=== PATIENT | male | born 1965 | race African-American/Black ===

== ENCOUNTER 2017-12-25 00:06 | Emergency (ER) | payer SELFPAY ==
[2017-12-25] MEDS ORDERED: Pantoprazole 40 MG VIAL ONE (00:51)
[2017-12-25 01:14] LABS: #Basophils 0.1 thou/uL (0.0-0.2); #Eosinphils 0.3 thou/uL (0.0-0.7); #Lymphocytes 2.1 thou/uL (1.20-3.40); #Monocytes 0.6 thou/uL (0.11-0.59); #Neutrophils 3.5 thou/uL (1.40-6.50); %Eosinophils 3.9 % (0.0-10.0); %Lymphocytes 32.5 % (21.0-51.0); %Monocytes 8.8 % (0.0-10.0); %Neutrophils 53.8 % (42.0-75.0); Hemoglobin 17.1 g/dL (14.0-18.0); Mean Corpuscular HGB CONC 33.5 g/dL (32.0-36.0); Mean Corpuscular Hemoglobin 27.5 pg (27.0-31.0); Mean Platelet Volume 7.9 fL (7.4-10.4); Platelet Count 229 thou/uL (130-400); RBC Distribution Width 13.2 % (11.5-14.5); Red Blood Cell (RBC) Count 6.24 mill/uL (4.70-6.10); White Blood Cell (WBC) Count 6.5 thou/uL (4.8-10.8)
[2017-12-25 01:33] LABS: Bilirubin Negative (Negative); Blood, Urine Negative (Negative); Clarity CLEAR (Clear); Glucose, Urine (Dipstick) Negative (Negative); Leukocyte Negative (Negative); Nitrite Negative (Negative); Protein, Urine (Dipstick) Negative (Neg-Trace); Specific Gravity, Urine 1.018 (1.002-1.036); Urobilinogen 0.2 mg/dL (0.2-1.0)
[2017-12-25 01:34] LABS: ALT (SGPT) 21 U/L (8-55); AST (SGOT) 20 U/L (5-34); Albumin 4.2 g/dL (3.5-5.0); Alkaline Phosphatase 65 U/L (40-150); Anion Gap 12 mmol/L (10-20); BUN (Urea Nitrogen) 26 mg/dL (8.4-25.7); Bilirubin, Total 0.4 mg/dL (0.2-1.2); CK (CPK) 544 U/L (30-200); Calc. Creatinine Clearance 0 mL/min (70-130); Calcium 9.6 mg/dL (7.8-10.44); Carbon Dioxide 26 mmol/L (22-29); Chloride 104 mmol/L (98-107); Estimated GFR-MDRD 64; Globulin 3.1 g/dL (2.4-3.5); Glucose 136 mg/dL (70-105); Lipase 39 U/L (8-78); Potassium 3.4 mmol/L (3.5-5.1); Protein, Total 7.3 g/dL (6.0-8.3); Sodium 139 mmol/L (136-145)
[2017-12-25 01:37] LABS: CKMB 3.4 ng/mL (0-6.6); Troponin I Less than 0.010 ng/mL (< 0.028)
--- NOTE | 2017-12-25 07:53 | CT ---
PRELIMINARY REPORT/[facility]/EMERGENCY AFTER HOURS PROCEDURE: EXAM: CT Abdomen and Pelvis With Intravenous Contrast CLINICAL HISTORY: 52 years old, male; Pain; Abdominal pain; Localized; Right lower quadrant (rlq); Patient HX: 52 yo m presents to ed with abdominal pain. Pt woke up with abd pain that has been there all day. Pt reports some SOB earlier today but has now resolved. Pt reports n/v today. Pt denies unusual sweating. Pt rep orts HX of hypertension, high cholesterol, and smoking. Pt denies HX of diabetes or HX of abd surgeri es. Pt has been taking BP medication normally. Pt denies heavy alcohol use in last few days. TECHNIQUE: Axial computed tomography images of the abdomen and pelvis with intravenous contrast. Coronal reforma tted images were created and reviewed. COMPARISON: No relevant prior studies available. FINDINGS: Lung bases: Normal. No mass. No consolidation. ABDOMEN: Liver: Normal. Gallbladder and bile ducts: Normal. Pancreas: Normal. Spleen: Normal. Adrenals: Normal. Kidneys and ureters: Normal. Stomach and bowel: Scattered colonic diverticulosis. PELVIS: Appendix: Appendix is normal. Bladder: Normal. Reproductive: Normal as visualized. ABDOMEN and PELVIS: Intraperitoneal space: Normal. No free air. No significant fluid collection. Bones/joints: Multilevel thoracolumbar spine degenerative changes. Degenerative changes of the hips and sacroiliac joints. No acute fracture. No dislocation. Soft tissues: Small fat-containing umbilical hernia, without acute complications. Vasculature: Phleboliths within the pelvis. Atherosclerotic disease of the abdominal aorta and iliac arteries. No abdominal aortic aneurysm. Lymph nodes: Normal. IMPRESSION: 1. No acute findings. 2. Non-acute findings are described above. Thank you for allowing us to participate in the care of your patient. Dictated and Authenticated by: Spenser Johnson MD 12/25/2017 1:37 AM Central Time ([place] & [place]) FINAL REPORT EMERGENCY AFTER HOURS CT ABDOMEN AND PELVIS PERFORMED WITH IV CONTRAST ENHANCEMENT: Date: 12/25/17 HISTORY: Right lower quadrant pain. FINDINGS: The lung bases are clear. Liver shows fatty change. The spleen, pancreas, and gallbladder regions are unremarkable. The liver m easures approximately 19.0 cm. Right and left adrenal glands, and right and left kidneys are normal in appearance. There is no signi ficant periaortic or mesenteric adenopathy. CT of pelvis was performed with contrast enhancement. There is some minimal sigmoid diverticulosis se en. Appendix is normal. No adenopathy, mass, or free fluid. There are some mild arthritic changes of the spine and hips. IMPRESSION: 1. Fatty changes of the liver, which is borderline in size. 2. Normal appendix. This report is in agreement with the preliminary report issued by [facility]. POS: [facility]
[2017-12-25] MEDS ORDERED: ISOVUE-370 76%-LOCM 1 ML ONE (14:49)
== END 2017-12-25 02:37 | disposition home or self-care (01) ==
LOC: ERS 00:06
DX: E86.0 Dehydration (principal); R10.13 Epigastric pain; Z71.6 Tobacco abuse counseling; I10 Essential (primary) hypertension; F17.210 Nicotine dependence, cigarettes, uncomplicated; Z79.899 Other long term (current) drug therapy
CPT/HCPCS: 36415; 74177; 80053; 81003; 82553; 83690; 84484; 85025; 93005; 96361; 96374; 99406; C9113

== ENCOUNTER 2018-01-02 04:42 | Emergency (ER) | payer OTHER, SELFPAY ==
[2018-01-02] MEDS ORDERED: Ibuprofen 800 MG TAB ONE (07:22)
--- NOTE | 2018-01-02 08:54 | RAD ---
LEFT FINGER 3 VIEWS: Date: 01/02/18 HISTORY: Injury, left finger pain. FINDINGS/IMPRESSION: There is subluxation at the PIP joint. No fracture or dislocation is identified. POS: [facility]
== END 2018-01-02 07:48 | disposition home or self-care (01) ==
LOC: ERS 04:42
DX: S69.92XA Unspecified injury of left wrist, hand and finger(s), initial encounter (principal); I10 Essential (primary) hypertension; F17.210 Nicotine dependence, cigarettes, uncomplicated; Z79.899 Other long term (current) drug therapy; W20.8XXA Other cause of strike by thrown, projected or falling object, initial encounter

== ENCOUNTER 2018-06-23 08:54 | Emergency (ER) | payer SELFPAY | END 2018-06-23 09:45 | disposition home or self-care (01) | LOC: SCSER 08:54 | DX: B35.4 Tinea corporis (principal); I10 Essential (primary) hypertension; F17.210 Nicotine dependence, cigarettes, uncomplicated; Z79.899 Other long term (current) drug therapy | CPT/HCPCS: 99282 ==

== ENCOUNTER 2018-07-04 00:21 | Emergency (ER) | payer SELFPAY ==
[2018-07-04 01:28] LABS: Mean Corpuscular HGB CONC 33.2 g/dL (32.0-36.0); Mean Corpuscular Volume 81.3 fL (78.0-98.0); Mean Platelet Volume 8.5 fL (7.4-10.4); Platelet Count 249 thou/uL (130-400); RBC Distribution Width 12.7 % (11.5-14.5); Red Blood Cell (RBC) Count 5.56 mill/uL (4.70-6.10)
[2018-07-04 01:43] LABS: Band 2 % (5-11); Eosinophils 4 % (0-10); Lymphocytes 27 % (21-51); MDiff Complete? YES; Monocytes 24 % (0-10); Neutrophil 38 % (42-75); Reactive Lymphocytes 5 % (0-10)
[2018-07-04 02:34] LABS: ALT (SGPT) 21 U/L (8-55); AST (SGOT) 19 U/L (5-34); Albumin 4.1 g/dL (3.5-5.0); Alkaline Phosphatase 79 U/L (40-150); Anion Gap 15 mmol/L (10-20); BUN (Urea Nitrogen) 20 mg/dL (8.4-25.7); Bilirubin, Total 0.4 mg/dL (0.2-1.2); Calc. Creatinine Clearance 0 mL/min (70-130); Calcium 9.5 mg/dL (7.8-10.44); Carbon Dioxide 24 mmol/L (22-29); Chloride 104 mmol/L (98-107); Estimated GFR-MDRD 70; Globulin 3.6 g/dL (2.4-3.5); Glucose 101 mg/dL (70-105); Lipase 52 U/L (8-78); Potassium 3.5 mmol/L (3.5-5.1); Protein, Total 7.7 g/dL (6.0-8.3); Sodium 139 mmol/L (136-145)
[2018-07-04] MEDS ORDERED: Ciprofloxacin 500 MG TAB ONE (03:05)
[2018-07-04] MEDS ORDERED: metroNIDAZOLE 250 MG TAB ONE (03:05)
--- NOTE | 2018-07-04 08:26 | CT ---
PRELIMINARY REPORT/[facility]/EMERGENTY AFTER-HOURS PROCEDURE CT Abdomen and Pelvis With Contrast EXAM DATE/TIME: 07/04/2018 1:52 AM CLINICAL HISTORY: 52 years old, male; Pain; Abdominal pain; Generalized; Patient HX: M52 with h/o HTN presents with maico rrhea x3-4 days associated with intermittent abd pain and drops of blood in stool TECHNIQUE: Axial computed tomography images of the abdomen and pelvis with intravenous contrast. Coronal reformatted images were created and reviewed. COMPARISON: No relevant prior studies available. FINDINGS: Lower thorax: No acute findings. ABDOMEN: Liver: No acute findings. No mass. Gallbladder and bile ducts: The gallbladder is contracted. Pancreas: No acute findings. No ductal dilation. Spleen: No acute findings. No splenomegaly. Adrenals: No acute findings. No mass. Kidneys and ureters: No acute findings. No mass. No hydronephrosis. Stomach and bowel: Colonic wall thickening compatible with colitis. No evidence of bowel obstruction. Appendix: No evidence of appendicitis. PELVIS: Bladder: No acute findings. Reproductive: No acute findings. ABDOMEN and PELVIS: Intraperitoneal space: No free air. No significant fluid collection. Bones/joints: No acute fracture. Soft tissues: No acute findings. Vasculature: Scattered atherosclerotic calcifications. No aortic aneurysm. Lymph nodes: No significant adenopathy. Small and a few prominent mesenteric lymph nodes. IMPRESSION: Colitis. Thank you for allowing us to participate in the care of your patient. Dictated and Authenticated by: Chandra Morgan MD 07/04/2018 2:36 AM Central Time ([place] & [place]) FINAL REPORT EMERGENT AFTER HOURS CT ABDOMEN AND PELVIS WITH IV CONTRAST: Date: 07-04-18 History: Abdominal pain and hypertension. Diarrhea for 3-4 days. Comparison: 12-25-17 IMPRESSION: 1. [facility] report mentions colonic wall thickening. While there is prominence of the ball of the colon predominately involving the ascending and transverse colon as well as region of the rectum, these fin dings may be attributable to incomplete distention as opposed to thickening secondary to colitis. Whi le colitis cannot be entirely excluded, there is no pericolonic inflammatory changes identified. 2. No CT evidence of appendicitis. 3. Vascular calcifications in the abdominal aorta and iliac arteries. 4. Small fat containing umbilical hernia. 5. Findings in agreement with the preliminary report by [facility]. POS: [facility]
== END 2018-07-04 03:15 | disposition home or self-care (01) ==
LOC: ERS 00:21
DX: K52.9 Noninfective gastroenteritis and colitis, unspecified (principal); E78.5 Hyperlipidemia, unspecified; I10 Essential (primary) hypertension; F17.210 Nicotine dependence, cigarettes, uncomplicated
CPT/HCPCS: 36415; 74177; 80053; 83690; 85025